=== PATIENT | female | born 1995 | race Two or more races ===

== ENCOUNTER 2024-10-28 11:11 | Emergency (ER) | payer OTHER ==
[~2024-10-28] VITALS: Ht 165.1 cm; Wt 86.2 kg
[2024-10-28 13:15] LABS: BASO % 0.5 % (0.1-1.2); EOS # 0.25 (0.04-0.54); EOS % 2.9 % (0.7-7.0); LYMPH # 2.66 (1.18-3.74); LYMPH % 31.4 % (19.3-53.1); MEAN PLATELET VOLUME 9.70 fl (9.4-12.4); MONO # 0.91 (0.24-0.82); MONO % 10.7 % (4.7-12.5); NEUT # 4.60 (1.56-6.13); NEUT % 54.3 % (34.0-71.1); RED CELL DISTRIBUTION WIDTH 12.8 % (11.6-14.4)
== END 2024-10-28 14:27 | disposition home or self-care (01) ==
LOC: ER 12:10
PROVIDERS: Emergency Medicine
DX: O20.9 Hemorrhage in early pregnancy, unspecified (principal); O43.891 Other placental disorders, first trimester; Z3A.01 Less than 8 weeks gestation of pregnancy

== ENCOUNTER 2024-11-26 10:57 | Emergency (ER) | payer OTHER ==
[~2024-11-26] VITALS: Ht 165.1 cm; Wt 88.9 kg
[2024-11-26] MEDS ORDERED: ONDANSETRON HCL 2 MG/ML VIAL IV ONE (12:00)
[2024-11-26] MEDS ORDERED: FAMOtidine 10 MG/ML (4ML VIAL) IV PUSH ONE (12:00)
[2024-11-26] MEDS ORDERED: RINGERS SOLUTION,LACTATED 1,000 ML IV ONE (12:00)
[2024-11-26] MEDS ORDERED: FAMOTIDINE/PF 20 MG/2 ML VIAL ONE (12:42)
[2024-11-26] MEDS ORDERED: ONDANSETRON HCL 2 MG/ML VIAL ONE (12:42)
[2024-11-26 13:27] LABS: BASO % 0.3 % (0.1-1.2); EOS # 0.15 (0.04-0.54); EOS % 1.6 % (0.7-7.0); LYMPH # 2.52 (1.18-3.74); LYMPH % 26.1 % (19.3-53.1); MEAN PLATELET VOLUME 9.60 fl (9.4-12.4); MONO # 0.69 (0.24-0.82); MONO % 7.1 % (4.7-12.5); NEUT # 6.24 (1.56-6.13); NEUT % 64.6 % (34.0-71.1); RED CELL DISTRIBUTION WIDTH 12.9 % (11.6-14.4)
[2024-11-26 13:55] LABS: COVID-19 AG NEGATIVE (NEGATIVE)
[2024-11-26 14:10] LABS: ALT/SGPT 20.0 U/L (12-78); AST/SGOT 8.0 U/L (15-37); BILIRUBIN TOTAL 0.33 mg/dL (0.3-1.2); BUN CREA RATIO 18.0 (7.0-25.0); CREATININE SERUM 0.44 mg/dL (0.55-1.02); GFR 171.53; GLOBULINA 4.5 G/DL (2.4-3.5); GLUCOSE FASTING 90.0 mg/dL (65-100); OSMOLALITY SERUM 275.0 MOSM/KG (275-295)
[2024-11-26 14:12] LABS: HCG QUANTITATIVE 127265.0 mUI/mL (1-3)
== END 2024-11-26 16:50 | disposition home or self-care (01) ==
LOC: ER 10:58
PROVIDERS: General Practice
DX: O21.8 Other vomiting complicating pregnancy (principal); Z3A.10 10 weeks gestation of pregnancy; Z20.822 Contact with and (suspected) exposure to COVID-19

== ENCOUNTER → 2025-02-05 10:15 | Outpatient (CLI) | payer OTHER | END | disposition home or self-care (01) | LOC: PRENATAL 10:15 | PROVIDERS: ATTEND Obstetrics & Gynecology Maternal & Fetal Medicine | DX: O44.02 Complete placenta previa NOS or without hemorrhage, second trimester (principal); Z3A.21 21 weeks gestation of pregnancy ==